=== PATIENT | female | born 1960 | race Caucasian/White ===

== ENCOUNTER 2016-10-10 07:14 | Day surgery (SDC) | payer OTHER ==
[~2016-10-10] VITALS: Ht 160 cm; Wt 61.2 kg
[~2016-10-10 07:14] MED LIST: FISH OIL 1,0001 EAC2 NG; LEVOTHYROXINE88 MCG PO; MULTIVITAMINS1 EAC7 PO; PROZAC20 MG PO; VITAMIN D31000 UNI1 PO; VIVELLE-DOT1 PATC1
--- NOTE | 2016-10-10 08:45 | NUR ---
10/10/16 0845 Soto Joyner SAT 98%, O2 DECREASED TO 1L VIA NC.
--- NOTE | 2016-10-10 11:49 | NUR ---
PT IN FOR ROUTINE SCOPE. FIRST SCOPE-SEEMED TO TAKE PREP IN STRIDE. JUST A SHORT VISIT-ED CALLED AND REQUESTED MY ASSISTANCE. WILL FOLLOW NEEDED
--- NOTE | 2016-10-11 10:51 | OR ---
[facility] [address], [place] [address] Signed DATE OF PROCEDURE: 10/10/16 PREOPERATIVE DIAGNOSES Mother with a history of colon cancer, age 56. Mother with history of breast cancer in her 50s. POSTOPERATIVE DIAGNOSES A 4 mm polyp at 10 cm. Long redundant narrow sigmoid colon. PROCEDURE: Colonoscopy without biopsy. ESTIMATED BLOOD LOSS: None. INDICATIONS Luis is a 55-year-old female who was asked to see me for her initial colonoscopy. She explained that her mother had developed breast cancer sometime in her very early 50s. She then developed colon cancer at about age 58. The colon surgery went well and she did not need chemotherapy or radiation therapy for the colon cancer. Unfortunately, her breast cancer came back and she from her breast cancer. In the office, I gave Luis a pamphlet on colonoscopy and we reviewed the nature of the test along with the risks including, but not limited to gas bloating, crampy abdominal pain, bleeding, perforation, requiring surgery, and missed diagnosis. She also understands the need for IV conscious sedation. She had expressed understanding and wished to proceed. PROCEDURE NOTE Luis was taken into our endoscopy suite and placed in the left lateral decubitus position. She was given 7 mg of Versed and 200 mcg of fentanyl for the case. A digital rectal exam was performed and this was unremarkable. The adult colonoscope was introduced and we removed a 4 mm polyp at 10 cm up in the rectum. We then took a few minutes to get through her long redundant and somewhat narrow sigmoid colon, all consistent with her body habitus. This required additional sedation and abdominal compression. Eventually, we got the scope around into the ascending colon. It took just a little more sedation and a little more compression of the stomach in order to get the scope into the cecum itself. Her prep was quite good. The scope was then slowly withdrawn. Her entire colon was absolutely fine. Upon retroflexion of the scope in the rectum, we saw no additional pathology noted above the anal canal. After this, the gas was suctioned out and the colonoscope removed. Luis tolerated procedure well. RECOMMENDATIONS I will see Luis back in my office in 7-14 days to review her results. Given her mother's history, she will need colon screening every 5 years. Electronically Signed By: LILIBETH FITZGERALD MD 10/11/16 1051 PATIENT NAME: LUIS CLINTON OPERATIVE REPORT DATE OF : 64 PHYSICIAN: LILIBETH FITZGERALD MD REPORT #: [id number] REPORT IS CONFIDENTIAL AND NOT TO BE RELEASED WITHOUT AUTHORIZATION [address] [address] Signed Lilibeth Fitzgerald MD AB/Modl /[id number] cc: Crystal Johnson MD Electronically Signed By: LILIBETH FITZGERALD MD 10/11/16 1051 PATIENT NAME: LUIS CLINTON OPERATIVE REPORT DATE OF : 64 PHYSICIAN: LILIBETH FITZGERALD MD REPORT #: [id number] REPORT IS CONFIDENTIAL AND NOT TO BE RELEASED WITHOUT AUTHORIZATION
== END 2016-10-10 09:32 | disposition home or self-care (01) ==
LOC: DS 07:14 → OPS 07:14 → DS 08:15 → OPS 09:32
PROVIDERS: Colon & Rectal Surgery
PROC: 0DBE8ZX Excision of Large Intestine, Via Natural or Artificial Opening Endoscopic, Diagnostic (ICD-10-PCS; principal; 2016-10-10 08:15)
DX: Z12.11 Encounter for screening for malignant neoplasm of colon (principal); K63.5 Polyp of colon; E03.9 Hypothyroidism, unspecified; G43.909 Migraine, unspecified, not intractable, without status migrainosus; F32.9 Major depressive disorder, single episode, unspecified; Z83.71 Family history of colonic polyps; Z80.3 Family history of malignant neoplasm of breast; Z87.440 Personal history of urinary (tract) infections; Z90.49 Acquired absence of other specified parts of digestive tract; Z90.710 Acquired absence of both cervix and uterus; Z98.890 Other specified postprocedural states; Z79.899 Other long term (current) drug therapy
CPT/HCPCS: 99152; 99153; J2250; J3010; J7120

== ENCOUNTER 2021-09-30 18:59 | Emergency (ER) | payer OTHER ==
[~2021-09-30] VITALS: Ht 160 cm; Wt 61.2 kg
--- NOTE | 2021-09-30 22:45 | EKG ---
[facility] [address] [facility] [place] [address] Signed Normal sinus rhythm Normal ECG No previous ECGs available Confirmed by NEIDA MIGUEL MD ([id number]) on 09/30/2021 10:45:18 PM Electronically Signed By: NEIDA MIGUEL MD 09/30/21 2245 PATIENT NAME: LUIS CLINTON Electrocardiogram DATE OF : 64 PHYSICIAN: NEIDA MIGUEL MD REPORT #: [id number] REPORT IS CONFIDENTIAL AND NOT TO BE RELEASED WITHOUT AUTHORIZATION
== END 2021-09-30 22:22 | disposition home or self-care (01) ==
LOC: ED 18:59
DX: B34.9 Viral infection, unspecified (principal); K21.9 Gastro-esophageal reflux disease without esophagitis; R07.89 Other chest pain; E03.9 Hypothyroidism, unspecified; Z20.822 Contact with and (suspected) exposure to COVID-19; Z79.899 Other long term (current) drug therapy
CPT/HCPCS: 36415; 71045; 80053; 83735; 84484; 85025; 85379; 87502; 87880; 93005; 93010; 96374; 96375; 99285-25; A9270; C9803; J2405; J3010; U0003